=== PATIENT | male | born 1935 | race Two or more races ===

== ENCOUNTER 2018-10-21 11:06 | Emergency (ER) | payer OTHER ==
[~2018-10-21] VITALS: Ht 167.6 cm; Wt 61.7 kg
[~2018-10-21 11:06] MED LIST: ASA81 MG; COZAAR100 MG; RAMIPRIL10 MG; SIMVASTATIN40 MG
[2018-10-21] MEDS ORDERED: PROTONIX40 MG (11:45)
[2018-10-21] MEDS ORDERED: LIPITOR40 MG (11:45)
[2018-10-21] MEDS ORDERED: PEPCID40 MG (11:45)
== END 2018-10-21 17:46 | disposition home or self-care (01) ==
LOC: ER 11:06
DX: K29.70 Gastritis, unspecified, without bleeding (principal); N39.0 Urinary tract infection, site not specified

== ENCOUNTER 2019-07-24 11:30 | Inpatient (IN) | payer OTHER ==
[~2019-07-24] VITALS: Ht 165.1 cm; Wt 59.0 kg
[~2019-07-24 11:30] MED LIST changes: +LIPITOR40 MG PO; +PEPCID40 MG PO; +PROTONIX40 MG PO
[2019-07-25] MEDS ORDERED: PLAVIX75 MG PO (08:23)
[2019-07-25] MEDS ORDERED: ZOLOFT25 MG PO (08:24)
[2019-07-25] MEDS ORDERED: BRIMONIDINE TART5 M1 OP (08:25)
[2019-07-25] MEDS ORDERED: [UNRECOGNIZED DRUG - OTHER] PO (08:27)
[2019-07-25] MEDS ORDERED: PHOSPHASAL TAB1 EACH PO (08:27)
== END 2019-07-28 12:16 | disposition home or self-care (01) | DRG 57 ==
LOC: MEDJ 11:30
PROVIDERS: ADMIT Internal Medicine Cardiovascular Disease
PROC: 0DH63UZ Insertion of Feeding Device into Stomach, Percutaneous Approach (ICD-10-PCS; principal; 2019-07-25)
PROC: 3E0G76Z Introduction of Nutritional Substance into Upper GI, Via Natural or Artificial Opening (ICD-10-PCS; 2019-07-26)
DX: I69.391 Dysphagia following cerebral infarction (principal); J90 Pleural effusion, not elsewhere classified; I69.351 Hemiplegia and hemiparesis following cerebral infarction affecting right dominant side; J98.11 Atelectasis; R13.19 Other dysphagia; I10 Essential (primary) hypertension; K44.9 Diaphragmatic hernia without obstruction or gangrene; K29.00 Acute gastritis without bleeding; R26.89 Other abnormalities of gait and mobility; F32.89 Other specified depressive episodes
CPT/HCPCS: 240